=== PATIENT | female | born 1980 | race Two or more races ===

== ENCOUNTER 2018-10-15 14:29 | Inpatient (IN) | payer OTHER ==
[~2018-10-15] VITALS: Ht 165.1 cm; Wt 84.4 kg
[2018-11-06] MEDS ORDERED: PRENATAL TABLE1 EAC1 PO (06:49)
== END 2018-11-08 11:58 | disposition home or self-care (01) | DRG 807 ==
LOC: LDR 11-06 06:11 → OB/GYN 11-06 06:11 → LDR 11-06 06:39 → OB/GYN 11-06 17:35
PROVIDERS: ADMIT Obstetrics & Gynecology
PROC: 10E0XZZ Delivery of Products of Conception, External Approach (ICD-10-PCS; principal; 2018-11-06)
PROC: 0KQM0ZZ Repair Perineum Muscle, Open Approach (ICD-10-PCS; 2018-11-06)
PROC: 4A0HXFZ Measurement of Products of Conception, Cardiac Rhythm, External Approach (ICD-10-PCS; 2018-11-06)
DX: O70.1 Second degree perineal laceration during delivery (principal); Z37.0 Single live birth; Z3A.39 39 weeks gestation of pregnancy

== ENCOUNTER 2019-09-05 10:01 | Outpatient (CLI) | payer OTHER ==
[~2019-09-05 10:01] MED LIST: PRENATAL TABLE1 EAC1 PO
== END 2019-09-05 14:15 | disposition home or self-care (01) ==
LOC: SONOGRAMA 10:01
DX: R10.10 Upper abdominal pain, unspecified (principal)